=== PATIENT | female | born 1985 | race Caucasian/White ===

== ENCOUNTER 2016-09-09 19:45 | Emergency (ER) | payer OTHER ==
[2016-09-09] MEDS ORDERED: KETOROLAC TROMETHAMINE INJ/PF 30 MG/1 ML SDV IV ONE (22:15)
[2016-09-09] MEDS ORDERED: DIPHENHYDRAMINE HCL 50 MG/ML VIAL IV ONE (22:15)
[2016-09-09] MEDS ORDERED: PROCHLORPERAZINE EDISYLATE INJ 10 MG/2 ML VIAL IV ONE (22:15)
[2016-09-09] MEDS ORDERED: NORMAL SALINE 1000 ML 1,000 ML IV ONE (22:16)
--- NOTE | 2016-09-09 22:45 | ER Document Report ---
ED Headache - General Chief Complaint: Headache Stated Complaint: POSSIBLE HEADACHE Time Seen by Provider: 09/09/16 21:49 Mode of Arrival: Ambulatory Information source: Patient Notes: 31-year-old female presents to ED for headache since Tuesday. She has a history of migraines. She states she took amitriptyline with no relief. She is alert and oriented speaking in full. Negative TRAVEL OUTSIDE OF THE [place] IN LAST 30 DAYS: No - HPI Patient complains to provider of: "Migraine" Patient reports: Hx chronic headaches Onset: Other - Tuesday Onset was: Gradual Timing: Still present Quality of pain: Achy, Throbbing Severity: Severe Pain Level: 5 Associated symptoms: Nausea/vomiting Exacerbated by: Light, Noise, Movement Similar symptoms previously: Yes Recently seen / treated by doctor: No - Related Data Allergies/Adverse Reactions: nickel Allergy (Severe, Verified 09/03/15 13:35) itching iodine Adverse Reaction (Severe, Verified 09/03/15 13:35) swelling Past Medical History - General Information source: Patient - Social History Smoking Status: Never Smoker Cigarette use (# per day): No Chew tobacco use (# tins/day): No Smoking Education Provided: No Frequency of alcohol use: None Drug Abuse: None Lives with: Alone Family History: None Patient has suicidal ideation: No Patient has homicidal ideation: No - Past Medical History Cardiac Medical History: Reports: None Pulmonary Medical History: Reports: Hx Asthma - inhalers,nebulizer, Hx Bronchitis - hx of EENT Medical History: Reports: None Neurological Medical History: Reports: Hx Migraine Endocrine Medical History: Reports: None Renal/ Medical History: Reports: None Malignancy Medical History: Reports: None GI Medical History: Reports: None Musculoskeltal Medical History: Reports Hx Musculoskeletal Deformity Skin Medical History: Reports None Psychiatric Medical History: Reports: Hx Anxiety, Hx Depression Traumatic Medical History: Reports: None Infectious Medical History: Reports: None Past Surgical History: Reports: Hx Gynecologic Surgery - She thinks she had an ablation she does not want surgery she is not sure - Immunizations Hx Diphtheria, Pertussis, Tetanus Vaccination: Yes Review of Systems - Review of Systems Constitutional: No symptoms reported EENT: No symptoms reported Cardiovascular: No symptoms reported Respiratory: No symptoms reported Gastrointestinal: Nausea, Vomiting Genitourinary: No symptoms reported Female Genitourinary: No symptoms reported Musculoskeletal: No symptoms reported Skin: No symptoms reported Hematologic/Lymphatic: No symptoms reported Neurological/Psychological: Headaches -: Yes All other systems reviewed and negative Physical Exam - Vital signs Vitals: Temp Pulse Resp BP Pulse Ox 99.6 F 103 H 20 141/107 H 98 09/09/16 19:58 09/09/16 19:58 09/09/16 19:58 09/09/16 19:58 09/09/16 19:58 Interpretation: Normal - General General appearance: Appears well, Alert - HEENT Head: Normocephalic, Atraumatic Eyes: Normal Pupils: PERRL - Respiratory Respiratory status: No respiratory distress Chest status: Nontender Breath sounds: Normal Chest palpation: Normal - Cardiovascular Rhythm: Regular Heart sounds: Normal auscultation Murmur: No - Abdominal Inspection: Normal Distension: No distension Bowel sounds: Normal Tenderness: Nontender Organomegaly: No organomegaly - Back Back: Normal, Nontender - Extremities General upper extremity: Normal inspection, Nontender, Normal color, Normal ROM , Normal temperature General lower extremity: Normal inspection, Nontender, Normal color, Normal ROM , Normal temperature, Normal weight bearing. No: Tonya's sign - Neurological Neuro grossly intact: Yes Cognition: Normal Orientation: AAOx4 Terry Coma Scale Eye Opening: Spontaneous [place] Coma Scale Verbal: Oriented Terry Coma Scale Motor: Obeys Commands [place] Coma Scale Total: 15 Speech: Normal Motor strength normal: LUE, RUE, LLE, RLE Sensory: Normal - Psychological Associated symptoms: Normal affect, Normal mood - Skin Skin Temperature: Warm Skin Moisture: Dry Skin Color: Normal Course - Re-evaluation Re-evalutation: 09/09/16 22:42 Cranial nerves grossly intact. Patient able to walk talk. Patient was treated with IV Compazine Toradol and Benadryl with IV fluids for her migraine. She states this helped her the last time. After patient was treated she stated she received good relief from the headache and was discharged home to follow-up with her primary doctor. - Vital Signs Vital signs: Temp Pulse Resp BP Pulse Ox 99.0 F 96 16 127/87 H 100 09/10/16 00:52 09/10/16 00:52 09/10/16 00:52 09/10/16 00:52 09/10/16 00:52 Discharge - Discharge Clinical Impression: Migraine headache Qualifiers: Migraine type: unspecified Status migrainosus presence: without status migrainosus Intractability: not intractable Qualified Code(s): G43.909 - Migraine, unspecified, not intractable, without status migrainosus Condition: Stable Disposition: HOME, SELF-CARE Additional Instructions: HEADACHE: The physician does not feel that the headache you are experiencing has a serious underlying cause. Most headaches are due to emotional stress, with resultant muscle tension (tension headache). Occasionally, headaches are secondary to changes in the blood vessels of the scalp (vascular headache and migraine headache). Sometimes, a headache is the first symptom of another developing illness, such as a viral infection. You have no evidence of stroke, bleeding, meningitis, or other serious cause of your headache. The treatment of headaches varies with the severity and cause of the pain. Not all headaches need pain shots. In fact, there is evidence that using narcotics for headaches may make them worse in the long run. The physician will determine the therapy that's in your best interest. If you develop a fever, if the headache is different from any you've previously experienced, or if the headache progressively worsens, then call your physician at once or go to the emergency room. USE OF DIPHENHYDRAMINE: Diphenhydramine (Benadryl) is an antihistamine and has been recommended to help treat your headache and to prevent side effects of other medications used to treat headaches. The medication can be repeated four times daily. Age Elixir (12.5 mg/tsp) 25 mg pill adult 1-2 tabs Antihistamines may cause drowsiness, especially with the first dose. Do not operate machinery or drive while under the effects of the medication. Do not combine the medication with alcohol, or with any other medication without talking to your doctor. ANTINAUSEA MEDICATION: You have been given a medication to suppress nausea and vomiting. This type of medication can be given as a shot, pill, or suppository. It will usually last for many hours. Pills and shots usually last six to eight hours, suppositories last about 12 hours. For the typical illness, only one or two doses of the medication may be necessary. Mild lightheadedness may occur. This type of medicine can cause drowsiness. Do not drive or operate dangerous machinery while under its influence. Do not mix with alcohol. See your doctor at once if you have muscle spasms or tightness, or uncontrollable motions (particularly of the neck, mouth, or jaw). Persistent vomiting or severe lightheadedness should also be evaluated by the physician. INTRAVENOUS COMPAZINE FOR HEADACHE: You have received therapy for headaches, using intravenous Compazine. This treatment is dramatically successful in relieving the headache in about 50 percent of cases. When it works, it provides a rapid method of eliminating the headache without resorting to narcotics (and the problems associated with them). Most patients still feel fully alert after the Compazine, but others may be slightly drowsy. It's best not to drive or work with machinery for six to eight hours. Do not take alcohol or other medication unless you discuss it with the doctor. If you develop tightness and spasms in your muscles, especially the neck and tongue, you should return. This is a side effect which can be treated. TORADOL INJECTION: You have been given an injection of ketorolac tromethamine (Toradol). This is an excellent, safe drug for pain control. It also has potent antiinflammatory action. You should have significant pain relief within about one hour. Toradol is not addicting and is non-sedating. It does not interfere with driving or work. Call or return if you develop itching, hives, shortness of breath, or rash. FOLLOW-UP CARE: If you have been referred to a physician for follow-up care, call the physician s office for an appointment as you were instructed or within the next two days. If you experience worsening or a significant change in your symptoms, notify the physician immediately or return to the Emergency Department at any time for re-evaluation. Forms: Elevated Blood Pressure Referrals: JACKIE PRO, ELISEO-C [Primary Care Provider] - Follow up as needed
[2016-09-10 01:13] VITALS: BP 130/86
== END 2016-09-10 00:57 | disposition home or self-care (01) ==
LOC: ER 19:45
DX: G43.909 Migraine, unspecified, not intractable, without status migrainosus (principal); R11.2 Nausea with vomiting, unspecified; J45.909 Unspecified asthma, uncomplicated
CPT/HCPCS: 99283; 96374; 96375; J1200; J1885; J0780

== ENCOUNTER 2019-12-27 20:08 | Emergency (ER) | payer OTHER ==
--- NOTE | 2019-12-27 20:49 | ER Document Report ---
ED Medical Screen (RME) - General Chief Complaint: Flu Symptoms Stated Complaint: HEADACHE/SHORTNESS OF BREATH/COVID EXPOSURE Time Seen by Provider: 12/27/19 20:43 Primary Care Provider: JACKIE PRO FNP-C [Primary Care Provider] - Follow up as needed Mode of Arrival: Ambulatory Information source: Patient Notes: 34-year-old female presented to ED for cough congestion low-grade fever change in sense of taste and smell chills since Tuesday. She states she did have a family member recently diagnosed with Covid. She states her last menstrual cycle was December 13. She states she does not drink smoke or use any drugs. She states she lives alone with her dog. She states she has frequent allergies and sinus symptoms so she does not know how long all the symptoms have been she states she has noticed a difference in the fever and chills since Tuesday. The patient was evaluated during the global Covid 19 pandemic, and that diagnosis was suspected/considered upon their initial presentation. Their evaluation, treatment and testing was consistent with current guidelines for patients who present with complaints or symptoms that may be related to Covid 1 9. I have greeted and performed a rapid initial assessment of this patient. A comprehensive ED assessment and evaluation of the patient, analysis of test results and completion of medical decision making process will be conducted by an additional ED providers. TRAVEL OUTSIDE OF THE [place] IN LAST 30 DAYS: No - Related Data Allergies/Adverse Reactions: nickel Allergy (Severe, Verified 09/03/15 13:35) itching iodine Adverse Reaction (Severe, Verified 09/03/15 13:35) swelling Past Medical History Pulmonary Medical History: Reports: Hx Asthma - inhalers,nebulizer, Hx Bronchitis - hx of Neurological Medical History: Reports: Hx Migraine Renal/ Medical History: Denies: Hx Peritoneal Dialysis Musculoskeltal Medical History: Reports Hx Musculoskeletal Deformity Psychiatric Medical History: Reports: Hx Anxiety, Hx Depression Past Surgical History: Reports: Hx Gynecologic Surgery - She thinks she had an ablation she does not want surgery she is not sure - Immunizations Hx Diphtheria, Pertussis, Tetanus Vaccination: Yes Physical Exam - Vital signs Vitals: Temp Pulse Resp BP Pulse Ox 99.0 F 88 16 122/77 99 12/27/19 20:36 12/27/19 20:36 12/27/19 20:36 12/27/19 20:36 12/27/19 20:36 Course - Vital Signs Vital signs: Temp Pulse Resp BP Pulse Ox 99.0 F 88 16 122/77 99 12/27/19 20:36 12/27/19 20:36 12/27/19 20:36 12/27/19 20:36 12/27/19 20:36 Doctor's Discharge - Discharge Referrals: JACKIE PRO, [facility] [Primary Care Provider] - Follow up as needed
--- NOTE | 2019-12-27 21:45 | RADIOLOGY REPORT (SQ) ---
EXAM DESCRIPTION: CHEST SINGLE VIEW CLINICAL HISTORY: 34 years Female, cough congestion low grade temp COMPARISON: None. FINDINGS: Lungs: Lungs are clear. No pneumonia or edema. No pneumothorax or pleural effusion. Mediastinum: Cardiac and mediastinal silhouette are normal. Bones: Osseous structures are normal. IMPRESSION: Unremarkable single view of the chest.
[2019-12-27] MEDS ORDERED: DEXAMETHASONE SOD PHOS INJ 10 MG/1 ML VIAL IM ONE (22:45)
--- NOTE | 2019-12-27 22:45 | ER Document Report ---
ED Flu Like - General Chief Complaint: Flu Symptoms Stated Complaint: HEADACHE/SHORTNESS OF BREATH/COVID EXPOSURE Time Seen by Provider: 12/27/19 20:43 Mode of Arrival: Ambulatory Notes: Patient is a 34-year-old female who comes emergency department for chief complaint of mild cough, congestion, irritation in the back of her throat, borderline change in sense of taste and smell. Symptoms started Tuesday. She denies fever. She denies shortness of breath, chest pain, nausea/vomiting. She states she is unsure if this is her baseline worsening symptoms, she states she has a history of bad allergies, migraines, lupus on Plaquenil, and asthma on albuterol at home. She denies wheezing. She states she is exposed to a family member who was positive for COVID-19. She has not been tested. She denies . TRAVEL OUTSIDE OF THE [place] IN LAST 30 DAYS: No - Related Data Allergies/Adverse Reactions: nickel Allergy (Severe, Verified 09/03/15 13:35) itching iodine Adverse Reaction (Severe, Verified 09/03/15 13:35) swelling Home Medications: delon, lithium, lexapro, wellbutrin, ibuprofen, albuterol, advair,. fentermine, plaqueil, Past Medical History - General Information source: Patient - Social History Smoking Status: Never Smoker Frequency of alcohol use: None Drug Abuse: None Lives with: Family Family History: None Pulmonary Medical History: Reports: Hx Asthma - inhalers,nebulizer, Hx Bronchitis - hx of Neurological Medical History: Reports: Hx Migraine Renal/ Medical History: Denies: Hx Peritoneal Dialysis Musculoskeletal Medical History: Reports Hx Musculoskeletal Deformity Psychiatric Medical History: Reports: Hx Anxiety, Hx Depression Past Surgical History: Reports: Hx Gynecologic Surgery - She thinks she had an ablation she does not want surgery she is not sure - Immunizations Hx Diphtheria, Pertussis, Tetanus Vaccination: Yes Review of Systems - Review of Systems Constitutional: See HPI EENT: See HPI Cardiovascular: No symptoms reported Respiratory: See HPI Gastrointestinal: No symptoms reported Genitourinary: No symptoms reported Female Genitourinary: No symptoms reported Musculoskeletal: No symptoms reported Skin: No symptoms reported Hematologic/Lymphatic: No symptoms reported Neurological/Psychological: See HPI Physical Exam - Vital signs Vitals: Temp Pulse Resp BP Pulse Ox 99.0 F 88 16 122/77 99 12/27/19 20:36 12/27/19 20:36 12/27/19 20:36 12/27/19 20:36 12/27/19 20:36 - Notes Notes: GENERAL: Alert, interacts well. No acute distress. HEAD: Normocephalic, atraumatic. EYES: Pupils equal, round, and reactive to light. Extraocular movements intact. ENT: Oral mucosa moist, tongue midline. Oropharynx unremarkable. Airway patent. Nares patent, sinuses non-tender, ear canals unremarkable, TM's intact. NECK: Full range of motion. Supple. Trachea midline. No lymphadenopathy. LUNGS: Clear to auscultation bilaterally, no wheezes, rales, or rhonchi. No respiratory distress. Non-tender chest wall. HEART: Regular rate and rhythm. No murmur ABDOMEN: Soft, non-tender. Non-distended. Bowel sounds present in all 4 quadrants. GENITOURINARY: Deferred EXTREMITIES: Moves all 4 extremities spontaneously. No edema, normal radial and dorsalis pedis pulses bilaterally. No cyanosis. BACK: no cervical, thoracic, lumbar midline tenderness. No saddle anesthesia, normal distal neurovascular exam. Moves all extremities in full range of motion. NEUROLOGICAL: Alert and oriented x3. Normal speech. Cranial nerves II through XII grossly intact. Strength 5/5 in all extremities. PSYCH: Normal affect, normal mood. SKIN: Warm, dry, normal turgor. No rashes or lesions noted. Course - Re-evaluation Re-evalutation: On my evaluation patient is alert, nontoxic, well-appearing. No current headache. No nuchal rigidity. No overt sinus tenderness. Unremarkable oropharyngeal exam, clear lungs, soft abdomen, unremarkable exam otherwise. Unremarkable vital signs. Work-up from triage reviewed including negative strep, negative influenza, pending Covid test, chest x-ray. I discussed with patient at length. After discussing different options we decided to give patient dexamethasone pending her COVID-19 test, patient will be discharged with return instructions which were discussed. Patient states satisfaction agreement with plan. - Vital Signs Vital signs: Temp Pulse Resp BP Pulse Ox 99.0 F 73 18 121/71 100 12/27/19 20:36 12/27/19 23:50 12/27/19 23:50 12/27/19 23:50 12/27/19 23:50 Discharge - Discharge Clinical Impression: Body aches, Cough, Sinus congestion, Person under investigation for COVID-19 Pharyngitis Qualifiers: Pharyngitis/tonsillitis etiology: unspecified etiology Qualified Code(s): J02.9 - Acute pharyngitis, unspecified Condition: Stable Disposition: HOME, SELF-CARE Instructions: COVID-19 Guidance for Persons Under Investigation Additional Instructions: Your chest x-ray does not show any concerning findings. Your influenza and strep tests are negative. You have been tested for COVID-19, please quarantine while you are awaiting these results. You will be contacted with results and additional instructions. See additional instructions on the form. Return if you worsen including spiking fevers, difficulty breathing, chest pain, severe headache, or any other concerning or worsening symptoms.
[2019-12-27] MEDS ORDERED: DEXAMETHASONE SOD PHOSPHATE INJ 4 MG/1 ML VIAL ONE (23:05)
[2019-12-27] MEDS ORDERED: DEXAMETHASONE SOD PHOSPHATE INJ 4 MG/1 ML VIAL IM ONE (23:11)
[2019-12-27 23:18] LABS: A TYPE INFLUENZA AG NEGATIVE (NEGATIVE); B INFLUENZA AG NEGATIVE (NEGATIVE)
[2019-12-27 23:55] VITALS: BP 121/71
== END 2019-12-27 23:55 | disposition home or self-care (01) ==
LOC: ER 20:08
DX: U07.1 COVID-19 (principal); J02.9 Acute pharyngitis, unspecified; R05 Cough; J45.909 Unspecified asthma, uncomplicated; F41.9 Anxiety disorder, unspecified; F32.9 Major depressive disorder, single episode, unspecified; Z79.899 Other long term (current) drug therapy; Z79.1 Long term (current) use of non-steroidal anti-inflammatories (NSAID); Z79.51 Long term (current) use of inhaled steroids; Z91.048 Other nonmedicinal substance allergy status
CPT/HCPCS: 99284; 96372; 87070; 87880; 87635; 87804; 71045; J1100; C9803

== ENCOUNTER 2019-12-30 18:53 | Emergency (ER) | payer OTHER ==
[2019-12-30] MEDS ORDERED: METOCLOPRAMIDE HCL INJ/PF 10 MG/2 ML SDV IV ONE (20:05)
[2019-12-30] MEDS ORDERED: DIPHENHYDRAMINE HCL 50 MG/ML VIAL IV ONE (20:05)
[2019-12-30] MEDS ORDERED: RINGERS SOLUTION,LACTATED 1,000 ML IV ONE (20:07)
[2019-12-30] MEDS ORDERED: ACETAMINOPHEN 325 MG TABLET PO ONE (20:07)
--- NOTE | 2019-12-30 20:08 | ER Document Report ---
ED Medical Screen (RME) - General Stated Complaint: HEADACHE, SHORTNESS OF BREATH, COUGH Time Seen by Provider: 12/30/19 20:00 Primary Care Provider: MAURO BLAIR MD [Primary Care Provider] - Follow up as needed Mode of Arrival: Ambulatory Information source: Patient Notes: HPI; 34-year-old female presents to the emergency room complaining of shortness of breath and headache x4 days. Patient was seen here on for flulike symptoms. Was notified yesterday that she had a positive Covid test. She had had a positive Covid exposure. States she has a history of migraines but this is worse than her normal migraines. States she is been trying to take her Imitrex without relief. Subjective fever. No nausea, no vomiting. Did not take any medications for her fever. PE: Alert and oriented x3. Lungs with scattered rhonchi no wheezes. Heart: Tachycardic without murmurs, rubs, gallops. I have greeted and performed a rapid initial assessment of this patient. A comprehensive ED assessment and evaluation of the patient, analysis of test results and completion of the medical decision making process will be conducted by additional ED providers. I have specifically instructed the patient or family members with the patient to immediately return to any nursing staff should anything change in the patient's condition or with their chief complaint. TRAVEL OUTSIDE OF THE [place] IN LAST 30 DAYS: No - Related Data Allergies/Adverse Reactions: nickel Allergy (Severe, Verified 09/03/15 13:35) itching iodine Adverse Reaction (Severe, Verified 09/03/15 13:35) swelling Past Medical History Pulmonary Medical History: Reports: Hx Asthma - inhalers,nebulizer, Hx Bronchi tis - hx of Neurological Medical History: Reports: Hx Migraine Renal/ Medical History: Denies: Hx Peritoneal Dialysis Musculoskeltal Medical History: Reports Hx Musculoskeletal Deformity Psychiatric Medical History: Reports: Hx Anxiety, Hx Depression Past Surgical History: Reports: Hx Gynecologic Surgery - She thinks she had an ablation she does not want surgery she is not sure - Immunizations Hx Diphtheria, Pertussis, Tetanus Vaccination: Yes Physical Exam - Vital signs Vitals: Temp Pulse Resp BP Pulse Ox 100.4 F 98 16 117/79 100 12/30/19 19:51 12/30/19 19:51 12/30/19 19:51 12/30/19 19:51 12/30/19 19:51 Course - Vital Signs Vital signs: Temp Pulse Resp BP Pulse Ox 100.4 F 98 16 117/79 100 12/30/19 19:51 12/30/19 19:51 12/30/19 19:51 12/30/19 19:51 12/30/19 19:51 Doctor's Discharge - Discharge Referrals: MAURO BLAIR MD [Primary Care Provider] - Follow up as needed
--- NOTE | 2019-12-30 20:55 | RADIOLOGY REPORT (SQ) ---
EXAM DESCRIPTION: XR CHEST 1 VIEW COMPLETED DATE/TME: 12/30/2019 20:23 CLINICAL HISTORY: 34 years, Female, cough EXAM DESCRIPTION: CHEST SINGLE VIEW CLINICAL HISTORY: cough COMPARISON: None. FINDINGS: Single view of the chest is submitted. Cardiac silhouette is normal. No focal parenchymal or pleural disease. There is no significant pulmonary vascular engorgement. IMPRESSION: No evidence of acute cardiopulmonary disease.
[2019-12-30 22:20] LABS: ABSOLUTE BASOPHILS # (AUTO) 0.1 10^3/uL (0.0-0.2); ABSOLUTE EOSINOPHILS # (AUTO) 0.1 10^3/uL (0.0-0.6); ABSOLUTE LYMPHOCYTES (AUTO) 1.8 10^3/uL (0.5-4.7); ABSOLUTE MONOCYTES (AUTO) 0.7 10^3/uL (0.1-1.4); ABSOLUTE NEUT (AUTO) 3.2 10^3/uL (1.7-8.2); BASOPHILS % (AUTO) 1.3 % (0-2); EOSINOPHILS % (AUTO) 1.4 % (0-6); HEMATOCRIT 37.9 % (36.0-47.0); HEMOGLOBIN 12.7 g/dL (12.0-15.5); MEAN CORPUSCULAR HEMOGLOBIN 29.9 pg (27.0-33.4); MEAN CORPUSCULAR HGB CONC 33.5 g/dL (32.0-36.0); MEAN CORPUSCULAR VOLUME 89 fl (80-97); MONOCYTES % (AUTO) 11.6 % (3-13); PLATELET COUNT 275 10^3/uL (150-450); RED BLOOD COUNT 4.24 10^6/uL (3.72-5.28); RED CELL DISTRIBUTION WIDTH 13.5 % (11.5-14.0); SEGMENTED NEUTROPHILS % (AUTO) 54.7 % (42-78); TOTAL CELLS COUNTED % (AUTO) 100 %; WHITE BLOOD COUNT 5.9 10^3/uL (4.0-10.5)
[2019-12-30 22:34] LABS: ALBUMIN 4.2 g/dL (3.5-5.0); ALKALINE PHOSPHATASE 46 U/L (38-126); ANION GAP 6 (5-19); ASPARTATE AMINO TRANSFERASE 19 U/L (14-36); BILIRUBIN,DIRECT 0.1 mg/dL (0.0-0.4); BILIRUBIN,TOTAL 0.3 mg/dL (0.2-1.3); BLOOD UREA NITROGEN 16 mg/dL (7-20); CALCIUM 10.1 mg/dL (8.4-10.2); CARBON DIOXIDE 30 mmol/L (22-30); CHLORIDE 102 mmol/L (98-107); GLUCOSE 83 mg/dL (75-110); TOTAL PROTEIN 7.6 g/dL (6.3-8.2)
[2019-12-30 22:35] LABS: POTASSIUM 4.3 mmol/L (3.6-5.0)
--- NOTE | 2019-12-30 23:34 | ER Document Report ---
ED General - General Chief Complaint: Headache Stated Complaint: HEADACHE, SHORTNESS OF BREATH, COUGH Time Seen by Provider: 12/30/19 20:00 Primary Care Provider: MAURO BLAIR MD [Primary Care Provider] - Follow up as needed Mode of Arrival: Ambulatory TRAVEL OUTSIDE OF THE [place] IN LAST 30 DAYS: No - HPI Notes: Patient is a 34-year-old female, recently diagnosis Covid positive, who presents to emergency department for evaluation of a headache. She has a history of migraine headaches, states this feels typical. Is worsened by movement and coughing. It is also worsened by bright light. She has had some nausea but no emesis. She has fever from her Covid. She continues to cough, dry nonproductive cough. She complains of anosmia. She said 3 episodes of diarrhea today. She is still urinating. Her head is pounding pain, she rates it initi ally a 4 out of 5, but states after treatment it is subsided significantly. - Related Data Allergies/Adverse Reactions: nickel Allergy (Severe, Verified 09/03/15 13:35) itching iodine Adverse Reaction (Severe, Verified 09/03/15 13:35) swelling Home Medications: Denning, Plaquenil, sulindac, antidepressant Past Medical History - General Information source: Patient - Social History Smoking Status: Never Smoker Frequency of alcohol use: None Drug Abuse: None Family History: None Patient has homicidal ideation: No Pulmonary Medical History: Reports: Hx Asthma - inhalers,nebulizer, Hx Bronchitis - hx of Neurological Medical History: Reports: Hx Migraine Renal/ Medical History: Denies: Hx Peritoneal Dialysis Musculoskeletal Medical History: Reports Hx Musculoskeletal Deformity, Reports Hx Systemic Lupus Erythematosus Psychiatric Medical History: Reports: Hx Anxiety, Hx Bipolar Disorder, Hx Depression Past Surgical History: Reports: Hx Gynecologic Surgery - She thinks she had an ablation she does not want surgery she is not sure - Immunizations Hx Diphtheria, Pertussis, Tetanus Vaccination: Yes Review of Systems - Review of Systems Constitutional: See HPI EENT: See HPI Cardiovascular: No symptoms reported Respiratory: See HPI Gastrointestinal: No symptoms reported, See HPI Genitourinary: See HPI Musculoskeletal: No symptoms reported Skin: No symptoms reported Neurological/Psychological: See HPI -: Yes All other systems reviewed and negative Physical Exam - Vital signs Vitals: Temp Pulse Resp BP Pulse Ox 100.4 F 98 16 117/79 100 11/15/20 19:51 12/30/19 19:51 12/30/19 19:51 12/30/19 19:51 12/30/19 19:51 - Notes Notes: Vital signs reviewed, please refer to chart. Head is normocephalic, atraumatic. Pupils equal round, reactive to light. Oral mucosa is moist. Pharynx is mildly erythematous without exudate. Neck is supple without meningismus. Heart is regular rate and rhythm. Lungs are clear to auscultation bilaterally. Abdomen is soft, nontender, normoactive bowel sounds throughout. Extremities without cyanosis, clubbing. Posterior calves are nontender. Peripheral pulses are equal. Skin is warm and dry. Patient is awake, alert, oriented x3. Cranial nerves II - XII are grossly intact without focal neurological deficits. Strength is plus 5 out of 5 bilateral upper and lower extremities. Sensation is intact. Reflexes symmetrical. Intact [id number], rapid alternating movements, [id number]. Course - Re-evaluation Re-evalutation: 12/30/19 23:36 Patient presents the emergency department for evaluation. She was initially seen through triage. She had laboratory investigations and imaging as ordered. She was treated with migraine cocktail and had significant improvement in her pain. She was told to continue to quarantine at home. She should try [id number] medications as needed. She is to follow-up with her primary care provider, preferably via telehealth. She is to return to the emergency department for worsening or new concerning symptoms of any sort. - Vital Signs Vital signs: Temp Pulse Resp BP Pulse Ox 100.4 F 98 16 117/79 100 12/30/19 19:51 12/30/19 19:51 12/30/19 19:51 12/30/19 19:51 12/30/19 19:51 - Laboratory Result Diagrams: 12/30/19 21:50 12/30/19 21:50 Laboratory results interpreted by me: 12/30/19 21:50 Est GFR (MDRD) Non-Af 50 L - Diagnostic Test Radiology reviewed: Reports reviewed Radiology results interpreted by me: 12/30/19 23:36 Chest X-Ray 12/30/19 20:05 IMPRESSION: No evidence of acute cardiopulmonary disease. Discharge - Discharge Clinical Impression: COVID-19 Migraine headache Qualifiers: Migraine type: without aura Status migrainosus presence: without status migrainosus Intractability: not intractable Qualified Code(s): G43.009 - Migraine without aura, not intractable, without status migrainosus Condition: Stable Disposition: HOME, SELF-CARE Instructions: Headache ([facility]), COVID-19 Guidance for Persons Under Investigation Additional Instructions: Please quarantine at home given your COVID-19 infection. Rest. Stay well- hydrated. Take [id number] medications as needed for pain and fever. Follow-up with your primary care provider next week, preferably via a telehealth visit. Return to the emergency department with worsening or new concerning symptoms of any sort. Referrals: MAURO BLAIR MD [Primary Care Provider] - Follow up as needed
[2019-12-31 00:39] VITALS: BP 100/70
== END 2019-12-31 00:38 | disposition home or self-care (01) ==
LOC: ER 18:53
DX: G43.009 Migraine without aura, not intractable, without status migrainosus (principal); U07.1 COVID-19; R11.0 Nausea; R05 Cough; R43.0 Anosmia; R19.7 Diarrhea, unspecified; J45.909 Unspecified asthma, uncomplicated; F32.9 Major depressive disorder, single episode, unspecified; M32.9 Systemic lupus erythematosus, unspecified; Z91.048 Other nonmedicinal substance allergy status; Z79.899 Other long term (current) drug therapy; Z79.1 Long term (current) use of non-steroidal anti-inflammatories (NSAID)
CPT/HCPCS: 99284; 96361; 96374; 96375; 36415; 84703; 85025; 80053; 71045; J1200; J2765; J7120